=== PATIENT | female | born 2000 | race Hispanic/Latino ===

== ENCOUNTER 2020-04-25 10:56 | Outpatient (CLI) | payer BC ==
--- NOTE | 2020-04-25 12:49 | Cat Scan Report ---
CT ABDOMEN AND PELVIS WITHOUT CONTRAST INDICATION / CLINICAL INFORMATION: PAIN IN KIDNEY AREA. TECHNIQUE: Axial CT images were obtained through the abdomen and pelvis without IV contrast. All CT scans at [facility] location are performed using CT dose reduction for ALARA by means of automated exposure control. COMPARISON: CT abdomen/pelvis dated 10/15/2019. FINDINGS: LOWER CHEST: No significant abnormality. LIVER: No significant abnormality. GALLBLADDER: No significant abnormality. PANCREAS: Previously visualized cystic lesion within the pancreatic body has slightly increased in si ze when compared to the previous examination. This now measures 3.5 x 3.8 cm (previously 3.2 cm). No pancreatic ductal dilation is seen. SPLEEN: No significant abnormality. ADRENALS: No significant abnormality. KIDNEYS / URETERS: Punctate nonobstructing right-sided nephrolith. No ureterolithiasis or obstructive uropathy. URINARY BLADDER: Very mild circumferential urinary bladder wall thickening is likely related to decom pression. REPRODUCTIVE ORGANS: No significant abnormality. STOMACH / SMALL BOWEL: No significant abnormality. COLON: No significant abnormality. APPENDIX: No significant abnormality. PERITONEUM: No free fluid. No free air. No fluid collection. LYMPH NODES: No significant adenopathy. AORTA / ARTERIES: No significant abnormality. IVC / VEINS: No significant abnormality. SKELETAL SYSTEM: No significant abnormality. ADDITIONAL FINDINGS: None. IMPRESSION: 1. No acute abdominopelvic abnormalities. 2. Punctate nonobstructing right renal stone. No ureteral stone or obstructive uropathy. 3. Interval enlargement of a cystic lesion within the pancreatic body. Again, multiphase MRI or endos copic ultrasound may be helpful for further characterization, if not already performed. Signer Name: Luiz Bonner MD Signed: 04/25/2020 12:44 PM Workstation Name: [id number]
== END 2020-04-25 10:57 | disposition home or self-care (01) ==
LOC: CT 10:56
PROVIDERS: ATTEND Urology
DX: N20.0 Calculus of kidney (principal); K86.2 Cyst of pancreas
CPT/HCPCS: 74176

== ENCOUNTER 2020-05-05 06:53 | Day surgery (SDC) | payer BC ==
[~2020-05-05 06:53] MED LIST: LACTATED RINGERS 1,000 ML IV SCH; MIDAZOLAM 2 MG/2 ML INJ IV NR; SCOPOLAMINE TRANSDERMAL PATCH 72 HR TD NR; ceFAZolin/Water 2 GM/20 ML 2 GM/20 ML SYRINGE IV NR
[2020-05-05] MEDS ORDERED: PHENYLEPHRINE/NS 1,000 MCG/10 ML SYRINGE (OR USE) IV ONE (08:49)
[2020-05-05] MEDS ORDERED: propofoL 200 MG/20 ML VIAL IV ONE (08:49)
[2020-05-05] MEDS ORDERED: GLYCOPYRROLATE 0.4 MG/2 ML INJ ONE (08:49)
[2020-05-05] MEDS ORDERED: dexAMETHasone 20 MG/5 ML VIAL ONE (08:49)
[2020-05-05] MEDS ORDERED: LIDOCAINE MPF (2%) 20 MG/1 ML VIAL 5 ML ONE (08:49)
[2020-05-05] MEDS ORDERED: ONDANSETRON 4 MG/2 ML INJ ONE (08:49)
[2020-05-05] MEDS ORDERED: fentaNYL 100 MCG/2 ML INJ ONE (08:49)
--- NOTE | 2020-05-05 09:03 | Anesthesia Consultation ---
Anesthesia Consult and Med Hx Date of service: 05/05/20 - Airway Anesthetic Teeth Evaluation: Good ROM Head & Neck: Adequate Mental/Hyoid Distance: Adequate Mallampati Class: Class III Intubation Access Assessment: Possibly Difficult - Pre-Operative Health Status ASA Pre-Surgery Classification: ASA2 Proposed Anesthetic Plan: General - Pulmonary Hx Smoking: No Hx Asthma: Yes ( CHILD ONLY- RESOLVED) Hx Respiratory Symptoms: No SOB: No COPD: No Home Oxygen Therapy: No Hx Pneumonia: No Hx Sleep Apnea: No (NAN PRE SCREEN NEGATIVE) - Cardiovascular System Hx Hypertension: No Hx Coronary Artery Disease: No Hx Heart Attack/AMI: No Hx Angina: No Hx Percutaneous Transluminal Coronary Angioplasty (PTCA): No Hx Cardia Arrhythmia: No Hx Pacemaker: No Hx Internal Defibrillator: No Hx Valvular Heart Disease: No Hx Heart Murmur: No Hx Peripheral Vascular Disease: No - Central Nervous System Hx Neuromuscular Disorder: No Hx Seizures: No CVA: No Hx Back Pain: No Hx Psychiatric Problems: Yes (depression) - Gastrointestinal Hx Ulcer: No Hx Gastroesophageal Reflux Disease: No - Endocrine Hx Renal Disease: Yes (kidney stones) Hx End Stage Renal Disease: No Hx Cirrhosis: No Hx Liver Disease: No Hx Insulin Dependent Diabetes: No Hx Non-Insulin Dependent Diabetes: No Hx Thyroid Disease: No - Hematic Hx Anemia: No Hx Sickle Cell Disease: No - Other Systems Hx Alcohol Use: Yes (occ.) Hx Substance Use: No Hx Cancer: No Hx Obesity: Yes
--- NOTE | 2020-05-05 09:03 | Anesthesia Day of Surgery ---
Anesthesia Day of Surgery - Day of Surgery Patient Examined: Yes Patient H&P Reviewed: Yes Patient is NPO: Yes
[2020-05-05] MEDS ORDERED: fentaNYL 100 MCG/2 ML INJ IV PRN (09:16)
[2020-05-05] MEDS ORDERED: HYDROcodone/ACETAMINOPHEN 5-325 MG TAB PO PRN (09:16)
[2020-05-05] MEDS ORDERED: ONDANSETRON 4 MG/2 ML INJ IV PRN (09:16)
[2020-05-05] MEDS ORDERED: IOHEXOL 240 MG/ML 100 ML IV ONE (09:32)
[2020-05-05] MEDS ORDERED: WATER FOR IRRIG STERILE 2000 ML IR ONE (09:33)
[2020-05-05] MEDS ORDERED: WATER FOR IRRIG STERILE 1,500 ML BOTTLE IR ONE (09:33)
--- NOTE | 2020-05-05 10:16 | Short Stay Summary ---
Short Stay Documentation Date of service: 05/05/20 - History H&P: obtained from office - Allergies and Medications Current Medications: Allergies azithromycin Allergy (Verified 11/14/19 10:52) Rash Home Medications Medication Instructions Recorded Confirmed Last Taken Type traMADoL [Ultram] 50 mg PO Q6HR PRN #7 tablet 11/14/19 05/05/20 05/02/20 Rx FLUoxetine [PROzac] 20 mg PO QDAY 05/01/20 05/05/20 05/04/20 History Active Medications Hydrocodone Bitart/Acetaminophen (Hydrocodone/Acetaminophen 5-325 Mg Tab) 2 each PO ONCE PRN PRN Reason: Pain, Moderate (4-6) Stop: 05/05/20 13:00 Fentanyl (Fentanyl 100 Mcg/2 Ml Inj) 50 mcg IV Q5MIN PRN PRN Reason: Pain , Severe (7-10) Stop: 05/05/20 20:00 Cefazolin Sodium (Ancef/Sterile Water 2 Gm/20 Ml) 2 gm in 20 mls @ 80 mls/hr IV PREOP NR; Protocol Stop: 05/05/20 23:59 Lactated Ringer's (Lactated Ringers) 1,000 mls @ 100 mls/hr IV DIRECT CHARMAINE Stop: 05/05/20 23:59 Last Admin: 05/05/20 08:20 Dose: 100 mls/hr Documented by: Midazolam HCl (Midazolam 2 Mg/2 Ml Inj) 2 mg IV PREOP NR Stop: 05/05/20 23:59 Last Admin: 05/05/20 08:23 Dose: 2 mg Documented by: Ondansetron HCl (Ondansetron 4 Mg/2 Ml Inj) 4 mg IV ONCE PRN PRN Reason: Nausea And Vomiting Stop: 05/05/20 20:00 Scopolamine (Scopolamine Transdermal Patch 72 Hr) 1 each TD PREOP NR Stop: 05/05/20 23:59 Last Admin: 05/05/20 08:05 Dose: 1 each Documented by: - Brief post op/procedure progress note Date of procedure: 05/05/20 Pre-op diagnosis: rt ureteral stone Post-op diagnosis: same Procedure: cysto, rpg, rt ueteroscopy ,basket stone, stent with external string Anesthesia: SHEYA Surgeon: DONALDO LOJA Condition: stable - Hospital course Hospital course: macrobid,norco, post op info on chart - Disposition Condition at discharge: Stable Disposition: DC-01 TO HOME OR SELFCARE Short Stay Discharge Plan Follow up with: PRIMARY CARE, [Primary Care Provider] - 7 Days
--- NOTE | 2020-05-05 10:34 | Operative Report ---
PREOPERATIVE DIAGNOSIS: Right proximal ureteral stone. POSTOPERATIVE DIAGNOSIS: Right distal ureteral stone. PROCEDURE: Cystoscopy, bilateral retrograde pyelograms, right ureteroscopy, basket stone extraction, double-J stent with an external string (6-St Lucian 24 cm). SURGEON: Arnold Riggins MD ANESTHESIA: General. ESTIMATED BLOOD LOSS: Minimal. FLUIDS: Crystalloid. COMPLICATIONS: No complications. INDICATIONS: This patient is a 19-year-old female seen in the office with right flank pain. Original CT abdomen and pelvis revealed a 5 mm proximal ureteral stone. She continued to have voiding dysfunction with urgency, frequency suggesting migration of the stone. Her pain persisted. She presents now for surgical intervention. DESCRIPTION OF PROCEDURE: The patient was taken to the operative suite, placed in a supine position. After adequate general anesthesia, she was placed in a dorsal lithotomy position, prepped and draped in a sterile fashion. Pancystourethroscopy was performed with 22-St Lucian Storz cystoscope, no urethral or bladder abnormalities. Bilateral retrograde pyelograms were obtained with an 8-St Lucian [place] catheter and 8 mL of contrast. No filling defects on the left. Right side, there is a small defect in the distal ureter consistent with the stone and 2.035 Glidewires were placed. Initially, a flexible scope was used; however, could not advance the scope due to the edema. Rigid scope was placed. Ureteroscopy was performed. Stone was visualized with a fair amount of edema. 0.035 basket was used to extract the stone. Ureteroscopy up to mid proximal ureter, no other abnormalities could be appreciated. A 6-St Lucian 24 cm double-J stent with an external string was left indwelling. The patient was extubated and taken to recovery room. She will go home on [employer]. JOB# [id number] [facility]
--- NOTE | 2020-05-05 10:42 | Fluoroscopy Report ---
FLUOROSCOPY RETROGRADE UROGRAPHY HISTORY: FINDINGS: Fluoroscopy was provided by radiology during retrograde urography by the urologist. A filli ng defect consistent with a stone is seen in the right ureter. Right ureteroscopy was performed. The stone was extracted with a basket. A right ureteral stent was inserted with good drainage of the righ t collecting system on the final image. The left retrograde pyelogram is unremarkable. IMPRESSION: Right ureteral stone removal. Right ureteral stent placement. Fluoroscopy time: 12 seconds Fluoroscopic images: 6 Signer Name: Joaquin Geller Jr, MD Signed: 05/05/2020 10:37 AM Workstation Name: [id number]
[2020-05-05 11:10] VITALS: BP 142/100
--- NOTE | 2020-05-05 13:55 | Post Anesthesia Evaluation ---
- Post Anesthesia Evaluation Patient Participated: Yes Airway Patent: Yes Stable Respiratory Function: Yes Nausea/Vomiting: No Temp > 96.8F: Yes Pain Manageable: Yes Adequeate Hydration: Yes Anesthesia Complications: No
== END 2020-05-05 06:54 | disposition home or self-care (01) ==
LOC: OR 06:53
PROVIDERS: ATTEND Urology
DX: N20.1 Calculus of ureter (principal); J45.909 Unspecified asthma, uncomplicated; E66.9 Obesity, unspecified; F32.9 Major depressive disorder, single episode, unspecified; Z72.89 Other problems related to lifestyle; Z88.8 Allergy status to other drugs, medicaments and biological substances; Z79.899 Other long term (current) drug therapy; Z98.890 Other specified postprocedural states; Z87.440 Personal history of urinary (tract) infections; Z68.30 Body mass index [BMI] 30.0-30.9, adult
CPT/HCPCS: 52332; 52352; 74420; 81025; A4217; C1726; C1758; C1769; C2617; J0690; J1100; J2250; J2370; J2405; J2704; J3010; J7120; Q9967

== ENCOUNTER 2020-08-25 15:16 | Emergency (ER) | payer BC ==
[2020-08-25 16:14] VITALS: BP 120/84
--- NOTE | 2020-08-25 16:17 | Event Note ---
ED Screening Note Date of service: 08/25/20 Time: 16:16 ED Screening Note: Patient complains of epigastric pain, gassiness, and bloating for the past few days States OTC antacids not helping Denies past medical history Also complains of bilateral upper back pain-denies ripping or tearing like pain No shortness of breath This initial assessment/diagnostic orders/clinical plan/treatment(s) is/are subject to change based on patients health status, clinical progression and re- assessment by fellow clinical providers in the ED. Further treatment and workup at subsequent clinical providers discretion. Patient/guardian urged not to elope from the ED as their condition may be serious if not clinically assessed and managed. Initial orders include: Labs Chest x-ray
[2020-08-25 16:59] LABS: Basophils # (Auto) 0.1 K/mm3 (0.0-0.1); Basophils % (Auto) 0.4 % (0.0-1.8); Eosinophils # (Auto) 0.1 K/mm3 (0.0-0.4); Eosinophils % (Auto) 0.7 % (0.0-4.3); Hematocrit 40.6 % (30.3-42.9); Hemoglobin 13.8 gm/dl (10.1-14.3); Lymphocytes # (Auto) 3.2 K/mm3 (1.2-5.4); Lymphocytes % (Auto) 25.4 % (13.4-35.0); Mean Corpuscular HGB Conc 34 % (30-34); Mean Corpuscular Volume 86 fl (79-97); Monocytes # (Auto) 0.8 K/mm3 (0.0-0.8); Monocytes % (Auto) 6.3 % (0.0-7.3); Platelet Count 247 K/mm3 (140-440); Red Blood Count 4.73 M/mm3 (3.65-5.03); Red Cell Distribution Width 12.5 % (13.2-15.2)
[2020-08-25 17:18] LABS: Alanine Aminotransferase 12 units/L (7-56); Albumin 4.9 g/dL (3.9-5); Blood Urea Nitrogen 13 mg/dL (7-17); Calcium 9.2 mg/dL (8.4-10.2); Hemolysis Index 1
[2020-08-25 17:22] LABS: BUN/Creatinine Ratio 22
--- NOTE | 2020-08-25 17:29 | XRay Report ---
CHEST 2 VIEWS INDICATION / CLINICAL INFORMATION: Posterior chest pain bilaterally. COMPARISON: None available. FINDINGS: SUPPORT DEVICES: None. HEART / MEDIASTINUM: The heart size and pulmonary vasculature are normal. The aorta is normal in [place]. LUNGS / PLEURA: No significant pulmonary or pleural abnormality. No pneumothorax. ADDITIONAL FINDINGS: No osseous abnormality is seen. IMPRESSION: No acute findings. Signer Name: Randal Lewis MD Signed: 08/25/2020 5:25 PM Workstation Name: [id number]
== END 2020-08-25 21:50 | disposition left against medical advice (07) ==
LOC: ED 15:16
DX: R11.0 Nausea (principal); Z53.21 Procedure and treatment not carried out due to patient leaving prior to being seen by health care provider
CPT/HCPCS: 36415; 71046; 80053; 83690; 84703; 85025

== ENCOUNTER 2020-08-27 08:54 | Outpatient (CLI) | payer BC ==
--- NOTE | 2020-08-27 17:30 | Ultrasound Report ---
ULTRASOUND ABDOMEN, LIMITED (RIGHT UPPER QUADRANT) INDICATION: GENERALIZED ABDOMINAL PAIN,POSITIVE TAMAYO'S SIGN. COMPARISON: None available. FINDINGS: Pancreas: 6.3 cm cystlike lesion identified near the proximal tail of the pancreas, similar to CT exa m from 04/25/2020. Liver: Normal. Gallbladder: Normal. Bile ducts: Normal. Common Bile Duct measures 5 mm. Free fluid: None. Additional Findings: None. IMPRESSION: 1. Large cystic abnormality identified within the pancreatic tail measuring about 6 cm in diameter, s imilar in size to 04/25/2020. It is unclear if this represents underlying low-grade neoplasm but the cystlike collection appears at least mildly complex 2. Nonobstructive right-sided nephrolithiasis Signer Name: Charlie Ashley MD Signed: 08/27/2020 5:25 PM Workstation Name: [id number]
== END 2020-08-27 08:55 | disposition home or self-care (01) ==
LOC: US 08:54
DX: N20.0 Calculus of kidney (principal); K86.2 Cyst of pancreas
CPT/HCPCS: 76705

== ENCOUNTER 2020-09-02 08:44 | Outpatient (CLI) | payer BC ==
--- NOTE | 2020-09-02 11:51 | Magnetic Resonance Report ---
MRI ABDOMEN WITHOUT AND WITH CONTRAST INDICATION / CLINICAL INFORMATION: PANCREATIC CYST. TECHNIQUE: Multiplanar, multisequence series were obtained through the abdomen. Postcontrast dynamic imaging fol lowing 15 cc of IV gadolinium. COMPARISON: CT abdomen pelvis with contrast dated 04/25/2020 FINDINGS: LIVER: No significant abnormality. GALLBLADDER: No significant abnormality. BILE DUCTS: No significant abnormality. PANCREAS: The previously described cystic lesion in the tail the pancreas has increased from 3.6 x 3. 6 cm to 5.6 x 6.1 cm on today's exam. There is rather homogeneous internal signal. No obvious septati on, soft tissue component or internal debris. This has the appearance of a pseudocyst. SPLEEN: No significant abnormality. ADRENALS: No significant abnormality. RIGHT KIDNEY AND URETER: No significant abnormality. LEFT KIDNEY AND URETER: No significant abnormality. STOMACH AND VISUALIZED BOWEL: No significant abnormality. PERITONEUM: No free fluid. No free air. No fluid collection. LYMPH NODES: No significant adenopathy. AORTA and ARTERIES: No significant abnormality. IVC and VEINS: No significant abnormality. ADDITIONAL FINDINGS: None. SKELETAL SYSTEM: No significant abnormality. IMPRESSION: Interval increase in size of the cystic lesion in the pancreas which is most consistent with a pseud ocyst. Signer Name: Joaquin Geller Jr, MD Signed: 09/02/2020 11:47 AM Workstation Name: [id number]
== END 2020-09-02 08:45 | disposition home or self-care (01) ==
LOC: MRI 08:44
PROVIDERS: ATTEND Internal Medicine Gastroenterology
DX: K86.2 Cyst of pancreas (principal)
CPT/HCPCS: 36415; 74183; 86301; A9575

== ENCOUNTER 2020-09-30 08:31 | Outpatient (CLI) | payer BC ==
--- NOTE | 2020-09-30 11:36 | Ultrasound Report ---
ULTRASOUND ABDOMEN, LIMITED (RIGHT UPPER QUADRANT) INDICATION / CLINICAL INFORMATION: ABDOMINAL PAIN. COMPARISON: Prior MRI of the abdomen with and without contrast 09/02/2020. Prior ultrasound abdomen limited 021 FINDINGS: PANCREAS: Interval enlargement of simple cystic lesion at the distal pancreatic body/tail now measuri ng 6.9 x 5.5 cm (previously 6.1 x 5.6 cm on MR and 6 cm on prior ultrasound). LIVER: No significant abnormality. GALLBLADDER: No significant abnormality. BILE DUCTS: No significant abnormality. Common bile duct measures 5 mm. FREE FLUID: None. ADDITIONAL FINDINGS: None. IMPRESSION: 1. Minimal interval enlargement of the patient's known simple cystic lesion at the distal pancreas lele dy/tail now measuring 6.9 cm in greatest cross-sectional diameter (previously 6.1 cm). Signer Name: Antonio James MD Signed: 09/30/2020 11:31 AM Workstation Name: [id number]
[2020-10-01] MEDS ORDERED: HEPARIN 10,000 UNITS/10 ML VIAL ONE (07:13)
[2020-10-01] MEDS ORDERED: BUPIVACAINE/PF (0.5%) 5 MG/1 ML 30 ML VIAL INFILTRATI ONE (07:13)
[2020-10-01] MEDS ORDERED: SODIUM CHLORIDE 0.9% 500 ML 500 ML ONE (07:13)
== END 2020-09-30 08:32 | disposition home or self-care (01) ==
LOC: US 08:31
PROVIDERS: ATTEND Surgery
DX: K80.20 Calculus of gallbladder without cholecystitis without obstruction (principal)
CPT/HCPCS: 76705; J1644; J7040